=== PATIENT | male | born 1960 | race Caucasian/White ===

== ENCOUNTER → 2020-08-14 | Outpatient (CLI) | payer BC, OTHER ==
[~2020-08-14] MED LIST: ALLOPURINOL 30300 M1 PO; BAYER CHEWABLE81 MG PO; COUMADIN 5 MG TA5 M1 PO; COZAAR100 MG PO; EFFIENT10 MG PO; LIPITOR40 MG PO; LIPITOR80 MG PO; METOPROLOL SUCC25 M1 PO; MINOCIN100 MG PO; NITROSTAT0.4 MG SL
== END ==
LOC: SJCVCIMAG 08:40
PROVIDERS: ATTEND Internal Medicine Cardiovascular Disease
DX: I25.10 Atherosclerotic heart disease of native coronary artery without angina pectoris (principal); R07.89 Other chest pain; I25.2 Old myocardial infarction; I10 Essential (primary) hypertension; E78.5 Hyperlipidemia, unspecified